=== PATIENT | male | born 1950 | race Caucasian/White ===

== ENCOUNTER → 2017-10-30 | Emergency (ER) | payer BC ==
[~2017-10-30] VITALS: Ht 172.7 cm; Wt 56.7 kg
[~2017-10-30] MED LIST: ATORVASTATIN CA10 MG; AZITHROMYCIN250 MG; SIMVASTATIN5 MG; ZITHROMAX200 MG
== END | disposition left against medical advice (07) ==
LOC: ER 14:41
DX: Z53.21 Procedure and treatment not carried out due to patient leaving prior to being seen by health care provider (principal)

== ENCOUNTER → 2017-10-31 | Emergency (ER) | payer BC ==
[~2017-10-31] VITALS: Ht 172.7 cm; Wt 56.7 kg
== END | disposition home or self-care (01) ==
LOC: ER 15:08
DX: J32.8 Other chronic sinusitis (principal)